=== PATIENT | female | born 1995 | race Caucasian/White ===

== ENCOUNTER 2018-06-05 14:12 | Emergency (ER) | payer MEDICAID ==
--- NOTE | 2018-06-05 14:33 | EDM.PDOC ---
ED HPI GENERAL MEDICAL PROBLEM - General Chief Complaint: Abdominal Pain Stated Complaint: 7 OR 8 WEEKS ,CRAMPING Time Seen by Provider: 06/05/18 14:12 Source of Information: Reports: Patient, Family History Limitations: Reports: No Limitations - History of Present Illness INITIAL COMMENTS - FREE TEXT/NARRATIVE: 22 y.o.w.f AB1 LNMP 03/16/2018 came with her SO to the ed due to pelvic cramping. Pt denied dysuria, no N/V/D. No trauma, no vag bleed. Pt did not have a OB US done in the past. no other acute medical issues. BP 117/47 pulse 112 RR 18 Pulse ox 98% on RA Temp 98.5 Onset Date: 06/05/18 Onset Time: 05:00 Duration: Day(s):, Intermittent Location: Reports: Pelvis Quality: Reports: Burning, Other (cramping) Severity: Moderate Improves with: Reports: None Worsens with: Reports: None Context: Reports: Other ( 11 weeks) Associated Symptoms: Reports: No Other Symptoms Lower Abdomen Pain Score (Numeric/FACES): 4 - Related Data Allergies Allergy/AdvReac Type Severity Reaction Status Date / Time No Known Allergies Allergy Verified 06/05/18 14:29 Home Meds: Home Meds Nitrofurantoin Monohyd/M-Cryst [Macrobid 100 mg Capsule] 100 mg PO BID #20 capsule 06/05/18 [Rx] ED ROS GENERAL - Review of Systems Review Of Systems: See Below Constitutional: Reports: No Symptoms HEENT: Reports: No Symptoms Respiratory: Reports: No Symptoms Cardiovascular: Reports: No Symptoms Endocrine: Reports: No Symptoms GI/Abdominal: Reports: Other (cramping) : Reports: Dysuria Musculoskeletal: Reports: No Symptoms Skin: Reports: No Symptoms Neurological: Reports: No Symptoms Psychiatric: Reports: No Symptoms Hematologic/Lymphatic: Reports: No Symptoms Immunologic: Reports: No Symptoms ED EXAM - Physical Exam Exam: See Below Exam Limited By: No Limitations General Appearance: Alert, WD/WN, Mild Distress Eye Exam: Bilateral Eye: Normal Inspection Ears: Normal External Exam Nose: Normal Inspection Throat/Mouth: Normal Inspection, Normal Lips, Normal Teeth, Normal Voice, No Airway Compromise Head: Atraumatic, Normocephalic Neck: Normal Inspection, Supple, Non-Tender, Full Range of Motion Respiratory/Chest: No Respiratory Distress, Lungs Clear, Normal Breath Sounds, No Accessory Muscle Use, Chest Non-Tender Cardiovascular: Normal Peripheral Pulses, Regular Rate, Rhythm GI/Abdominal Exam: Normal Bowel Sounds, Pelvis Stable, Tender (suprapubic) Rectal Exam: Deferred (Female) Exam: Deferred for Placenta Previa Heart Tones: Not [place] (112(?)) Movement: Not Appreciated Back Exam: Normal Inspection Extremities: Normal Inspection, Normal Range of Motion, Non-Tender Neurological: Alert, Oriented, CN II-XII Intact, Normal Cognition Psychiatric: Normal Affect, Normal Mood Skin Exam: Warm, Dry, Intact, Normal Color, No Rash Lymphatic: No Adenopathy Course - Vital Signs Text/Narrative:: 22 y.o.w.f AB1 LNMP 03/16/2018 came with her SO to the ed due to pelvic cramping. Pt denied dysuria, no N/V/D. No trauma, no vag bleed. Pt did not have a OB US done in the past. no other acute medical issues. BP 117/47 pulse 112 RR 18 Pulse ox 98% on RA Temp 98.5 PE: WNWD W F, with abd. cramping. Labs:CBC/BMP nl UA was pos for UTI HCG 5533 Imaging: OB US: No FHT, poss 5 weeks gestation, official report is pending Impression: : DDX: failure to thrife, miscarriage, very early etc Tx: Macrobid Reexam: Improved Plan: D/C with instructions Last Recorded V/S: Last Vital Signs Temp 36.8 C 06/05/18 14:15 Pulse 118 H 06/05/18 14:15 Resp 18 06/05/18 14:15 BP 117/47 L 06/05/18 14:15 Pulse Ox 98 06/05/18 14:15 - Orders/Labs/Meds Orders: Active Orders 24 hr Category Date Time Status Heart Tones [RC] ASDIRECTED Care 06/05/18 14:43 Active OB Ltd 1 or More Fetus [US] Stat Exams 06/05/18 16:44 Taken OB Transvaginal [US] Stat Exams 06/05/18 16:44 Taken CULTURE URINE [RM] Stat Lab 06/05/18 14:40 Received UA W/MICROSCOPIC [URIN] Stat Lab 06/05/18 14:40 Ordered Labs: Laboratory Tests 06/05/18 06/05/18 06/05/18 Range/Units 14:40 15:30 15:30 WBC 7.0 (4.5-12.0) X10-3/uL RBC 4.35 (3.23-5.20) x10(6)uL Hgb 13.8 (11.5-15.5) g/dL Hct 39.6 (30.0-51.3) % MCV 91.1 (80-96) fL MCH 31.7 (27.7-33.6) pg MCHC 34.9 (32.2-35.4) g/dL RDW 11.4 L (11.5-15.5) % Plt Count 235 (125-369) X10(3)uL MPV 9.3 (7.4-10.4) fL Neut % (Auto) 56.0 (46-82) % Lymph % (Auto) 33.0 (13-37) % [place] % (Auto) 7.3 (4-12) % Eos % (Auto) 3 (1.0-5.0) % Baso % (Auto) 1 (0-2) % Neut # (Auto) 3.9 (1.6-8.3) # Lymph # (Auto) 2.3 (0.6-5.0) # [place] # (Auto) 0.5 (0.0-1.3) # Eos # (Auto) 0.2 (0.0-0.8) # Baso # (Auto) 0.1 (0.0-0.2) # Sodium 139 (135-145) mmol/L Potassium 3.9 (3.5-5.3) mmol/L Chloride 105 (100-110) mmol/L Carbon Dioxide 25 (21-32) mmol/L BUN 8 (7-18) mg/dL Creatinine 0.6 (0.55-1.02) mg/dL Est Cr Clr Drug Dosing 123.72 mL/min Estimated GFR (MDRD) > 60 (>60) BUN/Creatinine Ratio 13.3 (9-20) Glucose 95 (80-116) mg/dL Calcium 9.0 (8.6-10.2) mg/dL HCG, Quant (<5) mIU/mL Urine Color Yellow (YELLOW) Urine Appearance Clear (CLEAR) Urine pH 5.0 (5.0-6.5) Ur Specific [place] 1.015 (1.010-1.025) Urine Protein Negative (NEGATIVE) mg/dL Urine Glucose (UA) Normal (NEGATIVE) mg/dL Urine Ketones Negative (NEGATIVE) mg/dL Urine Occult Blood Negative (NEGATIVE) Urine Nitrite Negative (NEGATIVE) Urine Bilirubin Negative (NEGATIVE) Urine Urobilinogen Normal (NEGATIVE) mg/dL Ur Leukocyte Esterase Large H (NEGATIVE) Urine RBC 0-5 (0) Urine WBC 20-30 H (0) Ur Squamous Epith Cells Many H (NS,R,O) Urine Bacteria Moderate H (NS) Urine Mucus Moderate H (NS) 06/05/ Range/Units 15:30 WBC (4.5-12.0) X10-3/uL RBC (3.23-5.20) x10(6)uL Hgb (11.5-15.5) g/dL Hct (30.0-51.3) % MCV (80-96) fL MCH (27.7-33.6) pg MCHC (32.2-35.4) g/dL RDW (11.5-15.5) % Plt Count (125-369) X10(3)uL MPV (7.4-10.4) fL Neut % (Auto) (46-82) % Lymph % (Auto) (13-37) % [place] % (Auto) (4-12) % Eos % (Auto) (1.0-5.0) % Baso % (Auto) (0-2) % Neut # (Auto) (1.6-8.3) # Lymph # (Auto) (0.6-5.0) # [place] # (Auto) (0.0-1.3) # Eos # (Auto) (0.0-0.8) # Baso # (Auto) (0.0-0.2) # Sodium (135-145) mmol/L Potassium (3.5-5.3) mmol/L Chloride (100-110) mmol/L Carbon Dioxide (21-32) mmol/L BUN (7-18) mg/dL Creatinine (0.55-1.02) mg/dL Est Cr Clr Drug Dosing mL/min Estimated GFR (MDRD) (>60) BUN/Creatinine Ratio (9-20) Glucose (80-116) mg/dL Calcium (8.6-10.2) mg/dL HCG, Quant 5533 (<5) mIU/mL Urine Color (YELLOW) Urine Appearance (CLEAR) Urine pH (5.0-6.5) Ur Specific [place] (1.010-1.025) Urine Protein (NEGATIVE) mg/dL Urine Glucose (UA) (NEGATIVE) mg/dL Urine Ketones (NEGATIVE) mg/dL Urine Occult Blood (NEGATIVE) Urine Nitrite (NEGATIVE) Urine Bilirubin (NEGATIVE) Urine Urobilinogen (NEGATIVE) mg/dL Ur Leukocyte Esterase (NEGATIVE) Urine RBC (0) Urine WBC (0) Ur Squamous Epith Cells (NS,R,O) Urine Bacteria (NS) Urine Mucus (NS) Meds: Medications Discontinued Medications Generic Name Dose Route Start Last Admin Trade Name Freq PRN Reason Stop Dose Admin Nitrofurantoin Macrocrystals 100 mg 06/05/18 15:05 06/05/18 15:27 Macrobid PO 06/05/18 15:06 100 mg ONETIME ONE Administration Nitrofurantoin Macrocrystals Confirm 06/05/18 15:23 06/05/18 15:27 Macrobid Administered 06/05/18 15:24 Not Given Dose 100 mg .ROUTE .STK-MED ONE Departure - Departure Time of Disposition: 17:18 Disposition: Home, Self-Care 01 Condition: Good Clinical Impression: Abdominal cramping UTI (urinary tract infection) Qualifiers: Urinary tract infection type: acute cystitis Hematuria presence: without hematuria Qualified Code(s): N30.00 - Acute cystitis without hematuria - Discharge Information Prescriptions: Nitrofurantoin Monohyd/M-Cryst [Macrobid 100 mg Capsule] 100 mg PO BID #20 capsule Instructions: Abdominal Pain During , [id number], Urinary Tract Infection, Adult Referrals: Teo Mendoza MD [Primary Care Provider] - Forms: ED Department Discharge Additional Instructions: Please increase water intake, please take Macrobid as recommeded, 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 Please come back if your symptoms get worse. - My Orders Last 24 Hours: My Active Orders 06/05/18 14:40 CULTURE URINE [RM] Stat UA W/MICROSCOPIC [URIN] Stat 06/05/18 14:43 Heart Tones [RC] ASDIRECTED 06/05/18 16:44 OB Ltd 1 or More Fetus [US] Stat OB Transvaginal [US] Stat - Assessment/Plan Last 24 Hours: My Active Orders 06/05/18 14:40 CULTURE URINE [RM] Stat UA W/MICROSCOPIC [URIN] Stat 06/05/18 14:43 Heart Tones [RC] ASDIRECTED 06/05/18 16:44 OB Ltd 1 or More Fetus [US] Stat OB Transvaginal [US] Stat
[2018-06-05] MEDS ORDERED: Nitrofurantoin Monohydrate/Macrocrystalline 100 MG Cap PO ONE (15:05)
[2018-06-05] MEDS ORDERED: Nitrofurantoin Monohydrate/Macrocrystalline 100 MG Cap ONE (15:23)
--- NOTE | 2018-06-06 13:29 | US ---
INDICATION: Cramping, history of miscarriage/first trimester cramping. OB ULTRASOUND, LIMITED/OB ULTRASOUND TRANSVAGINAL: Multiple ultrasonic images were initially obtained with transabdominal probe and then repeated with transvaginal probe, due to inadequate visualization of the endometrial cavity and ovaries. The uterus measured 7.8 x 3.6 x 4.9 cm. Right ovary measured 2.2 x 3.6 x 2.3 cm. Left ovary measured 1.9 x 1.9 x 1.3 cm. [place]/rump length was 1.9 mm, compatible with very early gestation. The gestational sac size of 0.87 cm was compatible with 5 weeks, 4 days gestational age. This is 6 weeks less than the LMP GA. No heart motion could be identified. The gestational sac was in the fundal area with prominent endometrium. No definite uterine mass is seen. What appears to be a collapsing corpus luteum cyst is noted at the right ovary, measuring approximately 13 mm. This could be confirmed on a repeat ultrasound when complete miscarriage occurs. A small to moderate amount of cul-de-sac fluid is noted, which may be physiologic but should be correlated clinically. IMPRESSION: Findings are compatible with demise, probably at a very early stage - less than 5 weeks, with gestational sac size at 5 weeks, 4 days, approximately 6 weeks behind the LMP GA. Cul-de-sac fluid is present, which is of questionable significance and may be physiologic. What appears to be a corpus luteum cyst that is involuting is noted on the right. Followup is recommended. MTDD
== END 2018-06-05 17:40 | disposition home or self-care (01) ==
LOC: FB.ED 14:12
DX: O99.89 Other specified diseases and conditions complicating pregnancy, childbirth and the puerperium (principal); N30.00 Acute cystitis without hematuria; Z3A.11 11 weeks gestation of pregnancy
CPT/HCPCS: 36415; 76815; 76817; 80048; 81001; 84702; 85025; 87086; 99284; A9270